=== PATIENT | female | born 1995 | race Caucasian/White ===

== ENCOUNTER → 2019-11-08 09:54 | Outpatient (BNVA) | payer OTHER, SELFPAY | PROVIDERS: Family Provider Nurse Practitioner; PCP Nurse Practitioner Family; Visit Provider Nurse Practitioner Family | DX: N92.6 Irregular menstruation, unspecified (principal) | CPT/HCPCS: 81025 ==

== ENCOUNTER → 2020-09-07 10:19 | Outpatient (BNVA) | payer OTHER, SELFPAY | PROVIDERS: Family Provider Nurse Practitioner; PCP Nurse Practitioner Family; Visit Provider Nurse Practitioner Family | DX: O15.2 Eclampsia complicating the puerperium (principal) | CPT/HCPCS: 80053; 80061; 84443; 85025 ==

== ENCOUNTER → 2020-09-13 16:53 | Outpatient (BNVA) | payer OTHER, SELFPAY | PROVIDERS: Family Provider Nurse Practitioner; PCP Nurse Practitioner Family; Visit Provider Nurse Practitioner Family | DX: O15.2 Eclampsia complicating the puerperium (principal); E78.00 Pure hypercholesterolemia, unspecified | CPT/HCPCS: 81000 ==

== ENCOUNTER 2020-09-17 18:46 | Emergency (ER) | payer OTHER, SELFPAY ==
[2020-09-17 18:56] VITALS: BP 139/84; PULSE 120; RESP 18; TEMP 36.7; O2SAT 98; BMI 34.5
[2020-09-17 20:30] VITALS: BP 179/110; PULSE 113; RESP 18; O2SAT 96
--- NOTE | 2020-09-17 20:42 | ED_ITS ---
HPI - Allergic Reaction General: Chief complaint: Allergic Reaction Stated complaint: poss reaction to medication Time Seen by Provider: 09/17/20 20:30 History of Present Illness: HPI narrative: Patient has had flushing yesterday and today after having increase in her nifedipine and then start Zoloft on . Patient is breast-feeding. Patient is 3 months . History of hypertension since then. MD complaint: other (Redness to extremities/flushing) Onset (ago): hour(s) Exposure: medication Associated symptoms: Reports dizziness; Deny abdominal pain, facial swelling, hoarseness, itching, lip swelling, nausea or vomiting Severity: mild Treatment prior to arrival: none Review of Systems Const: Denies: fever(s), chills or body aches Eyes: Denies: change in vision or blurry vision ENMT: Denies: hoarseness Card: Denies: chest pain or dyspnea on exertion Resp: Denies: dyspnea, productive cough or non-productive cough GI: Denies: abdominal pain, nausea or vomiting Musc: Denies: extremity pain Skin/Breast: Reports: erythema; Denies: rash Neuro: Reports: dizziness Psych: Denies: anxiety or depression Robby/Lymph: Denies: easy bruising All/Imm: Denies: facial swelling PFSH ED PFSH: Social History Smoking and tobacco status: former smoker Alcohol intake: never Female Reproductive History: Date of last menstrual period: 09/28/19 Physical Exam Const: COMMON NORMALS: no acute distress, average body habitus and patient oriented x3 HENMT: COMMON NORMALS: normocephalic HEAD & SCALP: normal to inspection and normocephalic FACE & SINUS: normal facial exam Eye: COMMON NORMALS: conjunctivae normal GENERAL EYE: appearance normal, both eyes and all related structures CONJUNCTIVA: Yes conjunctivae normal Neck/C-Spine: COMMON NORMALS: no JVD Chest: COMMONS NORMALS: normal inspection of the chest Resp: COMMON NORMALS: normal respiratory effort and clear to auscultation bilaterally AUSCULTATION: clear to auscultation bilaterally Cardio: COMMON NORMALS: no JVD and regular rhythm RATE: tachycardic RHYTHM: regular rhythm GI: COMMON NORMALS: Normal to inspection, nondistended, normoactive bowel sounds present Extremity: COMMON NORMALS: normal to inspection and full ROM Neuro: COMMON NORMALS: patient oriented x3 Skin: OTHER: Has redness to her upper extremities into her chest face consistent with a flushing type reaction. Course Vital Signs: Vital signs: Vital Signs Temperature 98.0 F 09/17/20 18:56 Pulse Rate 92 09/17/20 20:43 Respiratory Rate 16 09/17/20 20:43 Blood Pressure 146/96 09/17/20 20:43 Pulse Oximetry 97 09/17/20 20:43 MDM - Allergic Reaction MDM Narrative: Medical decision making narrative: Patient appears to be having an adverse reaction to her combination of increasing nifedipine and start of her Zoloft. Patient has flushing. Patient stopped those 2 medications, started on Toprol monitor blood pressure and follow-up primary care provider next week to 2 Discharge Plan Discharge Patient Disposition: Home Clinical Impression: Adverse reaction to drug Qualifiers: Encounter type: initial encounter Qualified Code(s): T50.905A - Adverse effect of unspecified drugs, medicaments and biological substances, initial encounter Condition: Stable Prescriptions: New Toprol XL 100 mg tablet extended release 24 hr 100 mg PO DAILY Qty: 14 RF: 0 Discontinued nifedipine 90 mg tablet extended release 90 mg PO DAILY Qty: 30 RF: 4 sertraline [Zoloft] 25 mg tablet 25 mg PO DAILY Qty: 30 RF: 0 No Action Zyrtec 10 mg capsule 10 mg PO DAILY RF: 0 [id number] 3-fat com #1 27-1-300 mg capsule PO RF: 0 Discharge Orders: Discharge ED (Routine); Ordered 09/17/20 Ordered By: Robert Thayer Referrals: Luisa Ye NP [Primary Care Provider] - Discharge Diet: Usual diet Discharge Activity: Resume usual activity Patient Instructions: Chronic Hypertension (ED) Activity Restrictions/Additional Instructions: Stop nifedipine and your Zoloft. Start new medication. Follow-up your primary care provider next week or 2. If reaction continues occur or worsening symptoms please return here or see your primary care provider. Monitor blood pressure twice a day. Coding Level of Care Code ED [employer] for Daniel Fwd Exam Comprehensive
[2020-09-17 20:43] VITALS: BP 146/96; PULSE 92; RESP 16; O2SAT 97
== END 2020-09-17 20:48 | disposition home or self-care (01) ==
PROVIDERS: Emergency Provider Nurse Practitioner Family; PCP Nurse Practitioner Family
DX: T88.7XXA Unspecified adverse effect of drug or medicament, initial encounter (principal); T50.905A Adverse effect of unspecified drugs, medicaments and biological substances, initial encounter; Z87.891 Personal history of nicotine dependence
CPT/HCPCS: 99282